=== PATIENT | female | born 1955 | race Caucasian/White ===

== ENCOUNTER 2016-06-04 08:29 | Observation (INO) | payer OTHER ==
--- NOTE | 2016-05-30 11:22 | P.GSHP ---
History of Present Illness H&P Date: 06/04/16 Chief Complaint: Incarcerated umbilical hernia This a 61-year-old female who initially presented to my office complaints of umbilical pain. Patient states that she has had pain off and on for several weeks in the area. She was felt a mass at her umbilicus. She was examined in the office found have an incarcerated umbilical hernia. - Gastrointestinal Gastrointestinal: Reports abdominal pain (Pain umbilicus) Past Medical History Past Medical History: Hypertension, Osteoarthritis (OA), Rheumatoid Arthritis ( RA), Thyroid Disorder Additional Past Medical History / Comment(s): back pain History of Any Multi-Drug Resistant Organisms: None Reported Past Surgical History: Hysterectomy Additional Past Surgical History / Comment(s): eye surgery, thyroidectomy, LEFT TOTAL HIP Past Anesthesia/Blood Transfusion Reactions: No Reported Reaction Past Psychological History: Anxiety Smoking Status: Current some day smoker Past Alcohol Use History: None Reported Additional Past Alcohol Use History / Comment(s): STARTED SMOKING AT AGE 20 QUIT ON AND OFF / SMOKED 1 PACK A WEEK Past Drug Use History: Opiates - Past Family History Mother Family Medical History: No Reported History Medications and Allergies Home Medications Medication Instructions Recorded Confirmed Type Cyclobenzaprine [Flexeril] 10 mg PO BID 12/15/14 02/05/16 History Gabapentin [Gabapentin] 800 mg PO TID 12/15/14 02/05/16 History Levothyroxine Sodium [Synthroid] 112 mcg PO HS 12/15/14 02/06/16 History amLODIPine BESYLATE [Amlodipine 5 mg PO DAILY 12/15/14 02/05/16 History Besylate] Aspirin 81 mg PO DAILY 02/05/16 02/05/16 History Buprenorphine HCl/Naloxone HCl 1 each SL TID 02/05/16 02/05/16 History [Suboxone 8 mg-2 mg Sl Film] cloNIDine HCL [Catapres] 0.1 mg PO HS 02/05/16 02/05/16 History clonazePAM [KlonoPIN] 0.25 mg PO TID 02/05/16 02/05/16 History Allergies Allergy/AdvReac Type Severity Reaction Status Date / Time morphine AdvReac LOW BLOOD Verified 02/05/16 10:14 PRESSURE Surgical - Exam Vital signs appear stable - General well developed, well nourished, no distress - Eyes PERRL - ENT normal pinna - Neck no masses - Respiratory normal expansion - Cardiovascular Rhythm: regular - Abdomen Abdomen: soft Hernia: umbilical, incarcerated (3 cm incarcerated umbilical hernia) Assessment and Plan Plan: Incarcerated umbilical hernia. We'll perform laparoscopic robotic-assisted repair with mesh.
[2016-05-31 11:14] VITALS: BMI 21.7
[~2016-06-04 08:29] MED LIST: DEXAMETHASONE SOD PHOSPHATE 10 MG/ML 1 ML VIAL IV ONE; HEPARIN SODIUM,PORCINE 5,000 UNIT/ML 1 ML VIAL SQ ONE; MIDAZOLAM 2 MG/2 ML VIAL IV PRN; SCOPOLAMINE 1.5MG/72HR PATCH TRANSDERM ONE; ceFAZolin 2 GM in SODIUM CHLORIDE 0.9% 100 ML IVPB ONE
[2016-06-04] MEDS: LACTATED RINGERS 1,000 ML IV SCH ×2 (09:22→23:35)
[2016-06-04] MEDS ORDERED: LIDOCAINE 1% 20 ML VIAL (10MG/ML) FOR IV START INTRADERMA ONE (09:23)
[2016-06-04] MEDS: ONDANSETRON 4 MG/2 ML VIAL IVP ONE ×2 (09:29→12:41)
[2016-06-04] MEDS ORDERED: PROPOFOL 10 MG/ML 20 ML VIAL IV ONE (10:04)
[2016-06-04] MEDS ORDERED: LIDOCAINE 1% INJ 10MG/ML (20 ML MDV) ONE (10:04)
[2016-06-04] MEDS ORDERED: KETOROLAC 30 MG/ML 1 ML VIAL ONE (10:04)
[2016-06-04] MEDS ORDERED: NEOSTIGMINE 1 MG/ML 10 ML VIAL ONE (10:04)
[2016-06-04] MEDS ORDERED: HYDROmorphone (PF) 1 MG/ML ONE (10:04)
[2016-06-04] MEDS ORDERED: GLYCOPYRROLATE 0.2 MG/ML 2 ML VIAL ONE (10:04)
[2016-06-04] MEDS ORDERED: ROCURONIUM BROMIDE 10 MG/ML 10 ML VIAL IV ONE (10:04)
[2016-06-04] MEDS ORDERED: LABETALOL 5 MG/ML VIAL MDV ONE (10:04)
[2016-06-04] MEDS ORDERED: hydrALAZINE HCL 20 MG/ML 1 ML VIAL ONE (10:04)
[2016-06-04] MEDS ORDERED: fentaNYL (PF) 50 MCG/ML 2 ML AMP ONE (10:04)
[2016-06-04] MEDS ORDERED: SUCCINYLCHOLINE CHLORIDE 100 MG/5 ML SYR IV ONE (10:04)
[2016-06-04] MEDS ORDERED: MIDAZOLAM 2 MG/2 ML VIAL ONE (10:04)
[2016-06-04] MEDS ORDERED: BUPIVACAIN-EPI 0.25%-1:200,000 30 ML VIAL SQ ONE (10:23)
--- NOTE | 2016-06-04 11:36 | P.OP ---
Date of Procedure: 06/04/16 Preoperative Diagnosis: Incarcerated umbilical hernia Postoperative Diagnosis: Incarcerated umbilical hernia Procedure(s) Performed: Laparoscopic robotic-assisted repair of incarcerated umbilical hernia Omentectomy Anesthesia: SAMIR Surgeon: Rc Wright Estimated Blood Loss (ml): 5 Pathology: other (Omentum) Condition: stable Disposition: PACU Description of Procedure: The patient's placed on the operating table in the supine position. She received a general anesthesia. Her abdomen was prepped and draped in usual sterile fashion. The peritoneal cavity is entered in the left upper quadrant using a 5 mm blade less trocar. After adequate insufflation the laparoscope placed back the pleural cavity and then a 8 mm robotic trocar was placed in the left lower quadrant and then a 12 mm trocar was placed in the left lateral position. The initial 5 mm trocar was exchanged for an 8 mm robotic trocar. The patient's placed in the left side up position. And then the patient was docked to the robot. Using the da Cesar robot the incarcerated ventral hernia was dissected. The incarcerated omentum was removed. The fascial defect was then closed using OV lock suture. After the fascial repair a [address] mesh was placed and secured with 2 OV lock suture. The patient was then undocked from the robot. And then the needles were withdrawn. The omentum was withdrawn through an Endo Catch. The fascia the 12 mm trocar site was closed with 0 Ethibond suture. The skin was closed with interrupted 3-0 Monocryl suture. Dermabond was applied. Patient top procedure well was sent to recovery in stable condition.
[2016-06-04] MEDS ORDERED: LACTATED RINGERS 1,000 ML IV ONE (11:37)
[2016-06-04] MEDS: HYDROmorphone 1 MG/ML 1 ML SYRINGE IVP ONE ×2 (12:26→12:32)
[2016-06-04] MEDS ORDERED: MIDAZOLAM 2 MG/2 ML VIAL IVP ONE (12:53)
[2016-06-04] MEDS ORDERED: HYDROcodone/APAP 7.5-325MG 1 EACH TAB PO ONE (14:05)
[2016-06-04] MEDS ORDERED: NALOXONE 0.4 MG/ML 1 ML VIAL IV PRN (15:31)
[2016-06-04] MEDS ORDERED: HYDROmorphone 1 MG/ML 1 ML SYRINGE IV PRN (15:31)
[2016-06-04] MEDS ORDERED: ACETAMINOPHEN TAB 325 MG TAB PO PRN (15:31)
[2016-06-04] MEDS ORDERED: HYDROcodone/APAP 5-325MG 1 EACH TAB PO PRN (15:31)
[2016-06-04] MEDS ORDERED: traMADol 50 MG TAB PO PRN (15:39)
[2016-06-04] MEDS ORDERED: ALPRAZolam 0.5 MG TAB PO PRN (15:39)
[2016-06-04] MEDS ORDERED: HYDROcodone/APAP 7.5-325MG 1 EACH TAB PO PRN (15:43)
[2016-06-04] MEDS ORDERED: SODIUM CHLORIDE 0.9% 1,000 ML IV SCH (15:45)
[2016-06-04] MEDS ORDERED: NALOXONE HCL SL SCH (16:00)
[2016-06-04] MEDS ORDERED: BUPRENORPHINE HCL SL SCH (16:00)
[2016-06-04] MEDS: KETOROLAC 30 MG/ML 1 ML VIAL IVP SCH ×2 (19:08→23:42)
[2016-06-04] MEDS: ONDANSETRON 4 MG/2 ML VIAL IVP PRN (19:13)
[2016-06-04] MEDS: HYDROmorphone 1 MG/ML 1 ML SYRINGE IVP PRN ×3 (20:01→23:42)
[2016-06-04] MEDS: HEPARIN SODIUM,PORCINE 5,000 UNIT/ML 1 ML VIAL SQ SCH (20:01)
[2016-06-04] MEDS: ALPRAZolam 0.5 MG TAB PO PRN (20:02)
[2016-06-04] MEDS ORDERED: LEVOTHYROXINE 112 MCG TAB PO SCH (21:00)
[2016-06-04] MEDS ORDERED: QUEtiapine 100 MG TAB PO SCH (21:00)
[2016-06-04] MEDS ORDERED: MAG HYDROX/AL HYDROX/SIMETH 30 ML CUP PO PRN (23:49)
[2016-06-05] MEDS: ONDANSETRON 4 MG/2 ML VIAL IVP PRN (01:48)
[2016-06-05] MEDS: HYDROmorphone 1 MG/ML 1 ML SYRINGE IVP PRN ×4 (01:48→09:17)
[2016-06-05] MEDS: KETOROLAC 30 MG/ML 1 ML VIAL IVP SCH ×2 (05:51→12:28)
[2016-06-05] MEDS: ALPRAZolam 0.5 MG TAB PO PRN (06:57)
[2016-06-05] MEDS: HEPARIN SODIUM,PORCINE 5,000 UNIT/ML 1 ML VIAL SQ SCH (08:40)
[2016-06-05] MEDS ORDERED: hydrALAZINE HCL 20 MG/ML 1 ML VIAL IVP PRN (08:57)
[2016-06-05] MEDS ORDERED: LACTOBACILLUS ACIDOPH & BULGAR 1 EACH PACKET PO SCH (09:00)
[2016-06-05] MEDS ORDERED: ESTROGENS, CONJUGATED 0.3 MG TAB PO SCH (09:00)
[2016-06-05] MEDS ORDERED: amLODIPine 10 MG TAB PO SCH (09:00)
[2016-06-05] MEDS ORDERED: PANTOPRAZOLE 40 MG/10 ML VIAL IV SCH (09:00)
[2016-06-05] MEDS ORDERED: ASPIRIN 81 MG CHEW PO SCH (09:00)
--- NOTE | 2016-06-05 11:52 | P.DS ---
Providers Date of admission: 06/04/16 19:34 Expected date of discharge: 06/05/16 Attending physician: Rc Wright Primary care physician: Francis [facility] Course: Patient is a 61-year-old female with complex medical history significant for chronic pain syndrome and opiate dependence. Patient presented to the hospital for elective laparoscopic robotic-assisted repair of incarcerated umbilical hernia. Patient tolerated procedure well. Patient was kept overnight for observation for intractable postoperative abdominal pain which improved during hospital stay. Upon examination, patient was tolerating a clear liquid diet. No nausea or vomiting. Passing flatus without bowel movement. Urinating without difficulty. Patient was up ambulating. Surgical incisions dry and intact. Patient was deemed stable for discharge with follow- up in the outpatient setting. Discharge diagnoses: Incarcerated umbilical hernia status post laparoscopic robotic-assisted repair of incarcerated umbilical hernia Omentectomy. Chronic pain syndrome with opiate dependence. The above impression and plan have been discussed and directed by Dr. Wright. Iftikhar HUTCHINS acting as scribe for Dr. Wright. Procedures: Laparoscopic robotic-assisted repair of incarcerated umbilical hernia; omentectomy Patient Condition at Discharge: Good Plan - Discharge Summary New Discharge Prescriptions: HYDROcodone/APAP 7.5-325MG [[place] 7.5-325] 1 each PO Q4H PRN #60 tab PRN Reason: Pain Discharge Medication List Aspirin 81 mg PO DAILY 02/05/16 [History] Estrogens, Conjugated [Premarin] 0.3 mg PO Q48H 05/31/16 [History] L.acidoph,Paracasei, B.lactis [Probiotic] 1 cap PO DAILY 05/31/16 [History] Methocarbamol [Robaxin] 1,000 mg PO Q8HR PRN 05/31/16 [History] Multivitamins, Thera [Multivitamin] 1 tab PO DAILY 05/31/16 [History] amLODIPine [Norvasc] 10 mg PO DAILY 05/31/16 [History] traMADol HCL [Ultram] 50 mg PO DIRECTED PRN 05/31/16 [History] ALPRAZolam [Xanax] 0.5 mg PO DIRECTED PRN 06/03/16 [History] Buprenorphine HCl/Naloxone HCl [Suboxone 8 mg-2 mg Sl Film] 1 film SL TID [History] QUEtiapine [SEROquel] 100 mg PO HS 06/03/16 [History] HYDROcodone/APAP 7.5-325MG [[place] 7.5-325] 1 each PO Q4H PRN #60 tab 06/04/16 [ Rx] Levothyroxine Sodium [Synthroid] 112 mcg PO HS 06/04/16 [History] Levothyroxine Sodium [Synthroid] 112 mcg PO HS tab 06/05/16 [Rx] Follow up Appointment(s)/Referral(s): Francis Cervantes MD [Primary Care Provider] - 1 Week Rc Wright MD [STAFF PHYSICIAN] - 1 Week Patient Instructions/Handouts: *Surgery [facility] - (Anesthesia) Discharge Instructions Outpatient Surgery, Laparoscopic Herniorrhaphy (DC) Care Plan Goals (MU): NO HEAVY LIFTING. ICE TO ABDOMEN TODAY ON 30 MINUTES,OFF 30 MINUTES. Discharge Disposition: HOME SELF-CARE
[2016-06-05] MEDS ORDERED: MULTIVITAMINS, THERA 1 EACH TAB PO SCH (12:00)
[2016-06-05 12:17] VITALS: BP 146/70; PULSE 79; RESP 16; TEMP 98.4
== END 2016-06-05 14:38 | disposition home or self-care (01) ==
LOC: OR 08:29 → 3OBS 11:41 → OR 19:36
PROVIDERS: ADMIT Surgery; ATTEND Surgery
DX: K42.0 Umbilical hernia with obstruction, without gangrene (principal); G89.4 Chronic pain syndrome; F11.20 Opioid dependence, uncomplicated; I10 Essential (primary) hypertension; M19.90 Unspecified osteoarthritis, unspecified site; E07.9 Disorder of thyroid, unspecified; Z79.82 Long term (current) use of aspirin; Z79.899 Other long term (current) drug therapy
CPT/HCPCS: 88305; 49653; G0378 ×2; C1781; J2250; J0360; J1644 ×2; J1100; J2710; J0690; J2405 ×2; J2001; J3010; J1885 ×2; J1170 ×2; J0330; J2704; 96372; 96374; 96375; 96376

== ENCOUNTER 2016-06-10 09:29 | Emergency (ER) | payer OTHER ==
[2016-06-10] MEDS ORDERED: SODIUM CHLORIDE 0.9% 1,000 ML IV STA (09:39)
[2016-06-10] MEDS ORDERED: ONDANSETRON 4 MG/2 ML VIAL IVP STA (09:48)
[2016-06-10] MEDS ORDERED: HYDROmorphone 1 MG/ML 1 ML SYRINGE IVP STA ×2 (09:48→12:22)
--- NOTE | 2016-06-10 09:50 | ED ---
General Adult HPI - General Chief complaint: Abdominal Pain Stated complaint: Abd pain Time Seen by Provider: 06/10/16 09:38 Source: patient, EMS, RN notes reviewed Mode of arrival: EMS - History of Present Illness Initial comments: Patient 61-year-old female who presents emergency room status post hernia repair times one week, who presents emergency room today with chief complaint of increased abdominal pain today. Does admit to increased pain throughout the abdomen greatest in the lower quadrant. States she's had flatulence but has not had a bowel movement since surgery. States pain is better since surgery has not gone away is not improving. Patient denies any nausea or vomiting. She denies any other complaints or associated symptoms. She does admit that it' s worse when she tries to sit up she feels increased pressure in the abdomen. Patient denies any recent fever, chills, shortness of breath, chest pain, back pain, nausea or vomiting, numbness or tingling, dysuria or hematuria, diarrhea, headaches or visual changes, or any other complaints. - Related Data Home Medications Medication Instructions Recorded Confirmed Aspirin 81 mg PO DAILY 02/05/16 06/10/16 Estrogens, Conjugated [Premarin] 0.3 mg PO Q48H 05/31/16 06/10/16 L.acidoph,Paracasei, B.lactis 1 cap PO DAILY 05/31/16 06/10/16 [Probiotic] Methocarbamol [Robaxin] 1,000 mg PO Q8HR PRN 05/31/16 06/10/16 Multivitamins, Thera [Multivitamin] 1 tab PO DAILY 05/31/16 06/10/16 amLODIPine [Norvasc] 10 mg PO DAILY 05/31/16 06/10/16 traMADol HCL [Ultram] 50 mg PO Q6H PRN 05/31/16 06/10/16 ALPRAZolam [Xanax] 0.25 - 0.5 mg PO Q8H PRN 06/03/16 06/10/16 Buprenorphine HCl/Naloxone HCl 1 film SL TID 06/03/16 06/10/16 [Suboxone 8 mg-2 mg Sl Film] QUEtiapine [SEROquel] 100 mg PO HS 06/03/16 06/10/16 HYDROcodone/APAP 7.5-325MG [[place] 1 tab PO Q4H PRN 06/10/16 06/10/16 7.5-325] Levothyroxine Sodium [Synthroid] 112 mcg PO DAILY 06/10/16 06/10/16 Allergies Allergy/AdvReac Type Severity Reaction Status Date / Time morphine AdvReac LOW BLOOD Verified 06/10/16 10:29 PRESSURE Review of Systems ROS Statement: Those systems with pertinent positive or pertinent negative responses have been documented in the HPI. ROS Other: All systems not noted in ROS Statement are negative. Past Medical History Past Medical History: Fibromyalgia, GERD/Reflux, Hypertension, Osteoarthritis ( OA), Rheumatoid Arthritis (RA), Thyroid Disorder Additional Past Medical History / Comment(s): HEPATITIS C, LOW BACK PAIN, LEFT HIP PAIN. , HX OF GRAVES EYE DISEASE. ,UMBILICAL HERNIA. History of Any Multi-Drug Resistant Organisms: Other MDRO Date of last positivie culture/infection: 06/2011 MDRO Source:: HANDS Past Surgical History: Hysterectomy Additional Past Surgical History / Comment(s): ORBITAL DECOMPRESSION EYE SURGERY , THYROIDECTOMY, LEFT TOTAL HIP, CYSTOCELE & RECTOCELE. Past Anesthesia/Blood Transfusion Reactions: No Reported Reaction Past Psychological History: Anxiety Smoking Status: Current some day smoker Past Alcohol Use History: None Reported Additional Past Alcohol Use History / Comment(s): STARTED SMOKING AT AGE 20 QUIT FOR 4 YEARS. SMOKES < 1PPD. SMOKING FOR APPROX 38 YEARS. Past Drug Use History: None Reported - Past Family History Mother Family Medical History: No Reported History General Exam - General Exam Comments Initial Comments: General: The patient is awake and alert, in no distress, and does not appear acutely ill. Eye: Pupils are equal, round and reactive to light, extra-ocular movements are intact. No nystagmus. There is normal conjunctiva bilaterally. No signs of icterus. Ears, nose, mouth and throat: There are moist mucous membranes and no oral lesions. Neck: The neck is supple, there is no tenderness or JVD. Cardiovascular: There is a regular rate and rhythm. No murmur, rub or gallop is appreciated. Respiratory: Lungs are clear to auscultation, respirations are non-labored, breath sounds are equal. No wheezes, stridor, rales, or rhonchi. Gastrointestinal: Normal appearance the abdomen. Incision sites are healing well with no signs of redness locally. Abdomen soft on palpation. Diffusely tender throughout the abdomen. No rebound tenderness. No guarding. Musculoskeletal: Normal ROM, no tenderness. Strength 5/5. Sensation intact. Pulses equal bilaterally 2+. Neurological: A&O x 3. CN II-XII intact, There are no obvious motor or sensory deficits. Coordination appears grossly intact. Speech is normal. Skin: Skin is warm and dry and no rashes or lesions are noted. Psychiatric: Cooperative, appropriate mood & affect, normal judgment. Course Vital Signs 06/10/16 09:30 Temperature 97.8 F Pulse Rate 82 Respiratory 18 Rate Blood Pressure 146/68 O2 Sat by Pulse 98 Oximetry Medical Decision Making - Medical Decision Making Patient's CAT scan reviewed and does show 1. Postoperative changes of the umbilical hernia repair. As noted there is mild stranding in the region of the omentum is a small amount of fluid presently postoperative in nature. Small amount of air seen within the abdomen as well as within the subcutaneous tissue. No drainable collection is seen at this time. 2. There is wall thickening involving the distal stomach and pylorus. Possible inflammatory process. 3. There is dilation of the intrahepatic biliary tree, common bile duct and pancreatic duct without obstructing calculus identified or distinct mass. As read by radiologist Dr. Martin. Case discussed in detail with attending physician Dr. Etienne. Results were discussed with the patient at bedside. She states she does have an appointment with her surgeon tomorrow. Patient pain controlled here the emergency room. Abdomen is soft. Vital stable. She will be discharged home advised to follow-up with surgeon tomorrow. Advised return if any symptoms increase or worsen. - Lab Data Result diagrams: 06/10/16 10:00 06/10/16 10:00 Lab Results 06/10/16 06/10/16 06/10/16 Range/Units 10:00 10:00 10:00 WBC 11.7 H (3.8-10.6) k/uL RBC 4.71 (3.80-5.40) m/uL Hgb 14.5 (11.4-16.0) gm/dL Hct 46.2 H (34.0-46.0) % MCV 98.1 (80.0-100.0) fL MCH 30.8 (25.0-35.0) pg MCHC 31.4 (31.0-37.0) g/dL RDW 13.6 (11.5-15.5) % Plt Count 339 (150-450) k/uL Neutrophils % 69 % Lymphocytes % 20 % Monocytes % 4 % Eosinophils % 5 % Basophils % 1 % Neutrophils # 8.1 H (1.3-7.7) k/uL Lymphocytes # 2.4 (1.0-4.8) k/uL Monocytes # 0.5 (0-1.0) k/uL Eosinophils # 0.5 (0-0.7) k/uL Basophils # 0.1 (0-0.2) k/uL Sodium 140 (137-145) mmol/L Potassium 4.2 (3.5-5.1) mmol/L Chloride 102 (98-107) mmol/L Carbon Dioxide 30 (22-30) mmol/L Anion Gap 8 mmol/L BUN 14 (7-17) mg/dL Creatinine 0.57 (0.52-1.04) mg/dL Est GFR (MDRD) Af Amer >60 (>60 ml/min/1.73 sqM) Est GFR (MDRD) Non-Af >60 (>60 ml/min/1.73 sqM) Glucose 98 (74-99) mg/dL Plasma Lactic Acid Desmond 1.3 (0.7-2.0) mmol/L Calcium 9.8 (8.4-10.2) mg/dL Total Bilirubin 0.5 (0.2-1.3) mg/dL AST 33 (14-36) U/L ALT 42 (9-52) U/L Alkaline Phosphatase 75 (38-126) U/L Total Protein 7.1 (6.3-8.2) g/dL Albumin 3.9 (3.5-5.0) g/dL Amylase 54 (30-110) U/L Lipase 45 (23-300) U/L Disposition Clinical Impression: Postoperative abdominal pain Disposition: HOME SELF-CARE Condition: Good Instructions: Abdominal Pain (ED) Additional Instructions: Please use medication as discussed. Please follow-up with surgeon tomorrow with scheduled appointment. Please return to emergency room if the symptoms increase or worsen or for any other concerns. Referrals: Francis Cervantes MD [Primary Care Provider] - 1-2 days Rc Wright MD [STAFF PHYSICIAN] - 1-2 days Time of Disposition: 12:25
[2016-06-10 10:41] LABS: Basophils # (A) 0.1 k/uL (0-0.2); Basophils % (A) 1 %; CHCM 32.8; Eosinophils # (A) 0.5 k/uL (0-0.7); Eosinophils % (A) 5 %; HCT 46.2 % (34.0-46.0); HDW 2.29; HGB 14.5 gm/dL (11.4-16.0); Luc # (Auto) 0.11; Luc % (Auto) 1; Lymphocytes # (A) 2.4 k/uL (1.0-4.8); Lymphocytes % (A) 20 %; MCH 30.8 pg (25.0-35.0); MCHC 31.4 g/dL (31.0-37.0); MCV 98.1 fL (80.0-100.0); Mean Platelet Volume 7.8; Monocytes # (A) 0.5 k/uL (0-1.0); Monocytes % (A) 4 %; Neutrophils # (A) 8.1 k/uL (1.3-7.7); Neutrophils % (A) 69 %; RBC 4.71 m/uL (3.80-5.40); RDW 13.6 % (11.5-15.5); WBC 11.7 k/uL (3.8-10.6); WBC (Perox) 12.54
[2016-06-10 10:46] LABS: ALT 42 U/L (9-52); AST 33 U/L (14-36); Alkaline Phosphatase 75 U/L (38-126); Amylase 54 U/L (30-110); Anion Gap 8 mmol/L; Blood Urea Nitrogen 14 mg/dL (7-17); Calcium 9.8 mg/dL (8.4-10.2); Carbon Dioxide 30 mmol/L (22-30); Chloride 102 mmol/L (98-107); Glucose 98 mg/dL (74-99); Non-African American GFR(MDRD) >60 (>60 ml/min/1.73 sqM); Potassium 4.2 mmol/L (3.5-5.1); Sodium 140 mmol/L (137-145); Total Bilirubin 0.5 mg/dL (0.2-1.3); Total Protein 7.1 g/dL (6.3-8.2)
[2016-06-10] MEDS ORDERED: RX INFO: IV CONTRAST WAS GIVEN 1 EACH MISC MISCELLANE PRN (10:47)
--- NOTE | 2016-06-10 10:47 | XR ---
EXAMINATION TYPE: XR KUB DATE OF EXAM: 06/10/2016 10:36 AM COMPARISON: NONE HISTORY: Pain TECHNIQUE: Single supine KUB image of the abdomen is obtained FINDINGS: Small bowel demonstrates no evidence for dilatation or air fluid levels. Gas and fecal material is seen in non-distended colon. No convincing evidence for pneumoperitoneum. No unusual calcifications. The lung bases are clear. The osseous structures are intact. IMPRESSION: 1. Overall nonobstructive bowel gas pattern.
--- NOTE | 2016-06-10 11:55 | CT ---
EXAMINATION TYPE: CT abdomen pelvis w con DATE OF EXAM: 06/10/2016 11:40 AM COMPARISON: NONE HISTORY: Pain since Hernia repair done 06/04/16 CT DLP: 373.7 mGycm CONTRAST: CT scan of the abdomen and pelvis is performed without Oral Contrast and with IV Contrast, patient in jected with 100 mL of Omnipaque 300. FINDINGS: LUNG BASES-: No visible nodule. No infiltrate. Mild linear atelectasis at the lung bases. LIVER/GB: No calcified gallstones. No space occupying hepatic lesion. Common bile duct is dilated at nearly 9 mm. There is mild intrahepatic biliary ductal dilatation as well. PANCREAS: No inflammation. No distinct mass. Intrahepatic duct is mildly dilated at 4.8 mm. Conside r ERCP evaluation. SPLEEN: No splenic enlargement. No lesion seen. ADRENALS: No nodule. No thickening. KIDNEYS/BLADDER: No hydronephrosis. No nephrolithiasis. No disctinct renal mass. Urinary bladder g rossly unremarkable. BOWEL:Normal appendix. Normal bowel caliber. No inflammation. There is wall thickening involving th e gastric pylorus which may be inflammatory in nature correlate clinically. GENITAL ORGANS: No gross abnormality. LYMPH NODES: No greater than 1cm abdominal or pelvic lymph nodes are appreciated. AORTA: No significant abnormality. OSSEOUS STRUCTURES: No significant abnormality is seen. OTHER: Small amount of subcutaneous air is noted as well as a small amount of air within the abdomen from recent umbilical hernia surgery. There is mild stranding of the omentum as well as a small amoun t of fluid likely postoperative in nature. IMPRESSION: 1. Postoperative changes of umbilical hernia repair. As noted there is mild stranding in the region o f the omentum is a small amount of fluid presumably postoperative in nature. Small amount of air is s een within the abdomen as well as within the subcutaneous tissues. No drainable collection is seen at this time. 2. There is wall thickening involving the distal stomach and pylorus. Correlate for possible inflamma tory process. 3. There is dilatation of the intrahepatic biliary tree, common bile duct and pancreatic duct without obstructing calculus identified on this study or distinct mass. Consider further evaluation with ERC P.
[2016-06-10 12:44] VITALS: BP 122/66; PULSE 74; RESP 16; TEMP 98
[2016-06-10 13:04] LABS: Appearance,Urine Cloudy (Clear); Bacteria,Urine Occasional /hpf; Bilirubin,Urine Negative (Negative); Glucose,Urine (UA) Negative (Negative); Ketones,Urine Trace (Negative); Leukocyte Esterase,Urine Small (Negative); Mucus,Urine Rare /hpf; Nitrite,Urine Negative (Negative); PH, Urine 6.5 (5.0-8.0); Particle Count 6607; Protein,Urine Negative (Negative); RBC,Urine <1 /hpf (0-5); Squamous Epithelial Cell,Urine 11 /hpf (0-4); UA Billing (MACRO vs. MICRO) MICRO; Urobilinogen,Urine <2.0 mg/dL (<2.0); WBC,Urine 5 /hpf (0-5)
== END 2016-06-10 13:30 | disposition home or self-care (01) ==
LOC: EC 09:29
DX: G89.18 Other acute postprocedural pain (principal); R10.9 Unspecified abdominal pain; Z79.82 Long term (current) use of aspirin; Z79.890 Hormone replacement therapy; I10 Essential (primary) hypertension; E07.9 Disorder of thyroid, unspecified; Z88.5 Allergy status to narcotic agent; F41.9 Anxiety disorder, unspecified; F17.200 Nicotine dependence, unspecified, uncomplicated; M79.7 Fibromyalgia
CPT/HCPCS: 36415; 80053; 82150; 83605; 83690; 85025; 81001; 74000; 74177; 96374; 96375; 96376; 96361 ×3; 99285; J2405; J1170; Q9967

== ENCOUNTER 2018-08-15 02:49 | Emergency (ER) | payer OTHER ==
[2018-08-15 03:03] VITALS: TEMP 97.5
--- NOTE | 2018-08-15 03:06 | ED ---
Altered Mental Status HPI - General Chief Complaint: Altered Mental Status Stated Complaint: Altered Mental Status Source: EMS Mode of arrival: EMS Limitations: altered mental status - History of Present Illness Initial Comments: Nedra is a 23-year-old female presents the emergency department today evaluation of altered mental status difficulty breathing headache and proptosis of her eyes. Patient has a history of Graves' disease reports her left eye is usually slightly proptotic. Patient on arrival is confused and agitated complaining of a headache. Per EMS they were patched to call for difficulty breathing. Upon arrival they were told by the patient's significant other that she has had a very emotionally stressful day he is concerned that she's having a panic attack and emotional breakdown. Apparently earlier in the day the patient's son who has a significant medical and psychiatric history of depression called her and told her he plan to kill himself. She then contacted police in [place] where he lives and he was taken to a hospital for psychiatric evaluation. This is obviously very emotionally distressing for the patient. This evening when she was noti fied that he was in the hospital she began having difficulty breathing becoming very agitated. He reports that he can get her to calm down or breathes any slower at which time he called EMS. EMS reports that they arrived on scene and the patient was laying on the ground with a cold rag on her head she was very pale and diaphoretic she was complaining of trouble breathing. She was noted to be very tachypneic. Upon their arrival the patient seemed to strain and have her seen proptosis of her left eye and then lost vision in her left eye. Patient reported that this is happened before and she was able to coax the block tester on how to gently apply pressure to her I which then went back into s ocket in her vision was restored to normal. - Related Data Home Medications Medication Instructions Recorded Confirmed Aspirin 81 mg PO DAILY 02/05/16 06/10/16 Estrogens, Conjugated [Premarin] 0.3 mg PO Q48H 05/31/16 06/10/16 L.acidoph,Paracasei, B.lactis 1 cap PO DAILY 05/31/16 06/10/16 [Probiotic] Methocarbamol [Robaxin] 1,000 mg PO Q8HR PRN 05/31/16 06/10/16 Multivitamins, Thera [Multivitamin 1 tab PO DAILY 05/31/16 06/10/16 (formulary)] amLODIPine [Norvasc] 10 mg PO DAILY 05/31/16 06/10/16 traMADol HCL [Ultram] 50 mg PO Q6H PRN 05/31/16 06/10/16 ALPRAZolam [Xanax] 0.25 - 0.5 mg PO Q8H PRN 06/03/16 06/10/16 Buprenorphine HCl/Naloxone HCl 1 film SL TID 06/03/16 06/10/16 [Suboxone 8 mg-2 mg Sl Film] QUEtiapine [SEROquel] 100 mg PO HS 06/03/16 06/10/16 HYDROcodone/APAP 7.5-325MG [[place] 1 tab PO Q4H PRN 06/10/16 06/10/16 7.5-325] Levothyroxine Sodium [Synthroid] 112 mcg PO DAILY 06/10/16 06/10/16 Allergies Allergy/AdvReac Type Severity Reaction Status Date / Time morphine AdvReac LOW BLOOD Verified 08/15/18 03:03 PRESSURE Review of Systems ROS Statement: Those systems with pertinent positive or pertinent negative responses have been documented in the HPI. ROS Other: All systems not noted in ROS Statement are negative. Past Medical History Past Medical History: Fibromyalgia, GERD/Reflux, Hypertension, Osteoarthritis (OA), Rheumatoid Arthritis (RA), Thyroid Disorder Additional Past Medical History / Comment(s): HEPATITIS C, LOW BACK PAIN, LEFT HIP PAIN. , HX OF GRAVES EYE DISEASE. ,UMBILICAL HERNIA. History of Any Multi-Drug Resistant Organisms: Other MDRO Date of last positivie culture/infection: 06/2011 MDRO Source:: HANDS Past Surgical History: Hysterectomy Additional Past Surgical History / Comment(s): ORBITAL DECOMPRESSION EYE SURGERY, THYROIDECTOMY, LEFT TOTAL HIP, CYSTOCELE & RECTOCELE. Past Anesthesia/Blood Transfusion Reactions: No Reported Reaction Past Psychological History: Anxiety Smoking Status: Current some day smoker Past Alcohol Use History: None Reported Past Drug Use History: None Reported, Opiates - Past Family History Mother Family Medical History: No Reported History General Exam - General Exam Comments Initial Comments: GENERAL: Chronically ill-appearing very thin female noted to have left eye proptosis and appear uncomfortable on exam HENT: Normocephalic, Atraumatic. Neck is soft and supple. No significant lymphadenopathy is noted. Oropharynx is clear. Moist mucous membranes. Neck has full range of motion without eliciting any pain. EYES: Left eye is proptotic Extraocular movements are intact Pupils equal round reactive to light PULMONARY: Unlabored respirations. Good breath sounds bilaterally. No audible rales rhonchi or wheezing was noted. CARDIOVASCULAR: There is a regular rate and rhythm without any murmurs gallops or rubs. ABDOMEN: Soft and nontender with normal bowel sounds. SKIN: Skin is clear with no lesions or rashes and otherwise unremarkable. NEUROLOGIC: is alert and oriented she is able to state her full name date of identify that she is in a hospital she is aware of the events that occurred earlier in the day, she seems somewhat confused about her significant other at bedside she is very confused about events leading up to hospitalization Patient is alert and oriented x3. Cranial nerves II through XII are grossly intact. Motor and sensory are also intact. Normal speech, volume and content. Symmetrical smile. MUSCULOSKELETAL: No lower extremity swelling or edema. No calf tenderness. LYMPHATICS: No significant lymphadenopathy is noted PSYCHIATRIC: Situational anxiety Limitations: altered mental status Course Vital Signs 08/15/18 08/15/18 08/15/18 02:51 03:57 04:00 Temperature 97.5 F L Pulse Rate 103 H 93 100 Respiratory 18 16 18 Rate Blood Pressure 147/77 162/89 172/97 O2 Sat by Pulse 100 100 99 Oximetry 08/15/18 04:29 Temperature 97.5 F L Pulse Rate 80 Respiratory 18 Rate Blood Pressure 164/80 O2 Sat by Pulse 99 Oximetry Medical Decision Making - Medical Decision Making The patient was seen and evaluated history is obtained from the patient, EMS and significant other at bedside Patient with very emotionally stressful day having episode of what the significant other believes was a panic attack with hyperventilation upon arrival to the emergency department she complains only of confusion and headache Labs and imaging was ordered I was called to the CT scanner by the packaging tech who has concern that the findings are positive for acute bleeding Upon my evaluation of the images I do have a high concern for subarachnoid bleed At this time the patient needs to be transferred to a facility that has neurosurgical services available, patient care was discussed with Dr. Muñoz at [facility] who accepts the transfer Patient care was discussed with Dr. Steiner radiology who has concern for ruptured aneurysm in recommends CTA for further evaluation and sign CTA was ordered EMS arrived transport - Lab Data Result diagrams: 08/15/18 03:21 08/15/18 03:21 Lab Results 08/15/18 08/15/18 Range/Units 03:21 03:21 WBC 13.4 H (3.8-10.6) k/uL RBC 4.85 (3.80-5.40) m/uL Hgb 15.1 (11.4-16.0) gm/dL Hct 45.5 (34.0-46.0) % MCV 94.0 (80.0-100.0) fL MCH 31.1 (25.0-35.0) pg MCHC 33.1 (31.0-37.0) g/dL RDW 13.7 (11.5-15.5) % Plt Count 290 (150-450) k/uL Neutrophils % 58 % Lymphocytes % 31 % Monocytes % 6 % Eosinophils % 2 % Basophils % 1 % Neutrophils # 7.8 H (1.3-7.7) k/uL Lymphocytes # 4.1 (1.0-4.8) k/uL Monocytes # 0.8 (0-1.0) k/uL Eosinophils # 0.3 (0-0.7) k/uL Basophils # 0.1 (0-0.2) k/uL Sodium 141 (137-145) mmol/L Potassium 3.4 L (3.5-5.1) mmol/L Chloride 104 (98-107) mmol/L Carbon Dioxide 27 (22-30) mmol/L Anion Gap 10 mmol/L BUN 18 H (7-17) mg/dL Creatinine 0.65 (0.52-1.04) mg/dL Est GFR (CKD-EPI)AfAm >90 (>60 ml/min/1.73 sqM) Est GFR (CKD-EPI)NonAf >90 (>60 ml/min/1.73 sqM) Glucose 103 H (74-99) mg/dL Calcium 10.3 H (8.4-10.2) mg/dL Magnesium 2.0 (1.6-2.3) mg/dL Total Bilirubin 0.6 (0.2-1.3) mg/dL AST 39 H (14-36) U/L ALT 32 (9-52) U/L Alkaline Phosphatase 101 (38-126) U/L Total Protein 7.4 (6.3-8.2) g/dL Albumin 4.1 (3.5-5.0) g/dL - EKG Data -: EKG Interpreted by Me EKG Comments: EKG was obtained 3:12 AM, rate is 98 rhythm is sinus there is a normal axis there are normal intervals, WV 134, QRS 88, QTC is 469. No acute ST elevations or may be mild ST depressions in V4 V5. No evidence of acute infarction. Critical Care Time Critical Care Time: Yes Total Critical Care Time: 30 Disposition Clinical Impression: Subarachnoid bleed Disposition: OTHER INSTITUTION NOT DEFINED Condition: Serious Referrals: Francis Cervantes MD [STAFF PHYSICIAN] - 1-2 days - Out of Hospital Transfer - Req. Specs Out of Hospital Transfer - Requested Specifics: Neurological ICU (Maldonado Mendez)
--- NOTE | 2018-08-15 04:09 | CT ---
EXAM: CT Head Without Intravenous Contrast CLINICAL HISTORY: ITS.REASON CT Reason: altered TECHNIQUE: Axial computed tomography images of the head/brain without intravenous contrast. CTDI is 45.2 mGy and DLP is 1008 mGy-cm. This CT exam was performed using one or more of the following dose reduction techniques: automated exposure control, adjustment of the mA and/or kV according to patient size, and/or use of iterative reconstruction technique. COMPARISON: None FINDINGS: Brain: Triangular morphology of the cerebellar tonsils which extend 10 mm below foramen magnum with associated crowding compatible with Chiari I malformation. Extensive subarachnoid hemorrhage is seen involving the sulci of the frontal lobes, suprasellar cistern, and basilar cisterns as well as small amount of intraventricular blood in the left lateral ventricle and the fourth ventricle. Ventricles: Unremarkable. No ventriculomegaly. Bones/joints: Chronic fracture deformity of the right orbital floor. Soft tissues: Unremarkable. Sinuses: Unremarkable as visualized. No acute sinusitis. Mastoid air cells: Unremarkable as visualized. No mastoid effusion. IMPRESSION: 1. Extensive subarachnoid hemorrhage and small amount of intraventricular hemorrhage. Recommend evaluation with CT head angiogram to evaluate for ruptured aneurysm. 2. Triangular morphology of the cerebellar tonsils which extend 10 mm below foramen magnum with associated crowding compatible with Chiari I malformation. <MYCVCSECTION> Critical Value Communications 08/15/18 04:14 Call Doctor Regarding Intracranial Hemorrhage, called Dr. Argueta on 08/15 04:13 (-04:00)
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
[2018-08-15] MEDS ORDERED: ONDANSETRON 4 MG/2 ML VIAL IVP STA (04:21)
[2018-08-15 04:27] LABS: Albumin 4.1 g/dL (3.5-5.0); Anion Gap 10 mmol/L; Blood Urea Nitrogen 18 mg/dL (7-17); Calcium 10.3 mg/dL (8.4-10.2); Carbon Dioxide 27 mmol/L (22-30); Chloride 104 mmol/L (98-107); Glucose 103 mg/dL (74-99); Sodium 141 mmol/L (137-145); Total Bilirubin 0.6 mg/dL (0.2-1.3); Total Protein 7.4 g/dL (6.3-8.2)
[2018-08-15 04:28] LABS: ALT 32 U/L (9-52); AST 39 U/L (14-36); Alkaline Phosphatase 101 U/L (38-126); Potassium 3.4 mmol/L (3.5-5.1)
[2018-08-15 04:29] VITALS: BP 164/80; PULSE 80; RESP 18
[2018-08-15 04:29] LABS: Basophils # (A) 0.1 k/uL (0-0.2); Basophils % (A) 1 %; Eosinophils # (A) 0.3 k/uL (0-0.7); Eosinophils % (A) 2 %; HCT 45.5 % (34.0-46.0); HGB 15.1 gm/dL (11.4-16.0); Lymphocytes # (A) 4.1 k/uL (1.0-4.8); Lymphocytes % (A) 31 %; MCH 31.1 pg (25.0-35.0); MCHC 33.1 g/dL (31.0-37.0); Mean Platelet Volume 8.1; Monocytes # (A) 0.8 k/uL (0-1.0); Monocytes % (A) 6 %; Neutrophils # (A) 7.8 k/uL (1.3-7.7); Neutrophils % (A) 58 %; Platelet Count 290 k/uL (150-450); RBC 4.85 m/uL (3.80-5.40); RDW 13.7 % (11.5-15.5); WBC 13.4 k/uL (3.8-10.6)
--- NOTE | 2018-08-15 04:38 | CT ---
EXAM: CT Angiography Head With Intravenous Contrast CLINICAL HISTORY: ITS.REASON CT Reason: Pain TECHNIQUE: Axial computed tomographic angiography images of the head with intravenous contrast using CT angiography protocol. CTDI is 43.2 mGy and DLP is 1016 mGy-cm. This CT exam was performed using one or more of the following dose reduction techniques: automated exposure control, adjustment of the mA and/or kV according to patient size, and/or use of iterative reconstruction technique. 3D and MIP reconstructed images were created and reviewed. COMPARISON: CT head 08/15/2018 FINDINGS: Right internal carotid artery: No acute findings. Intracranial segment is patent with no significant stenosis. No aneurysm. Right anterior cerebral artery: There is an anterior communicating artery aneurysm measuring 3 mm in width with a dome to neck measuring approximately 4.5 mm and a neck measuring approximately 2 mm. There is a small bleb at the dome of the aneurysm. No occlusion or significant stenosis. Right middle cerebral artery: Unremarkable. No occlusion or significant stenosis. No aneurysm. Right posterior cerebral artery: Unremarkable. No occlusion or significant stenosis. No aneurysm. Right vertebral artery: Unremarkable as visualized. Left internal carotid artery: No acute findings. Intracranial segment is patent with no significant stenosis. No aneurysm. Left anterior cerebral artery: See above. Left middle cerebral artery: Unremarkable. No occlusion or significant stenosis. No aneurysm. Left posterior cerebral artery: Unremarkable. No occlusion or significant stenosis. No aneurysm. Left vertebral artery: Unremarkable as visualized. Basilar artery: Unremarkable. No occlusion or significant stenosis. No aneurysm. IMPRESSION: 1. 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 2. No other aneurysm is seen. 3. No large vessel occlusion or hemodynamically significant stenosis. <MYCVCSECTION> Critical Value Communications 08/15/18 04:36 Call Doctor Regarding Aneurysm Rupture, called Dr. Argueta on 08/15 04:36 (-04:00)
[2018-08-15 04:47] LABS: Appearance,Urine Clear (Clear); Bilirubin,Urine Negative (Negative); Blood,Urine Negative (Negative); Color,Urine Light Yellow; Glucose,Urine (UA) Negative (Negative); Ketones,Urine Negative (Negative); Leukocyte Esterase,Urine Negative (Negative); Nitrite,Urine Negative (Negative); Protein,Urine Negative (Negative); Specific Gravity,Urine 1.008 (1.001-1.035); Urobilinogen,Urine <2.0 mg/dL (<2.0)
[2018-08-15 04:50] LABS: Amphetamine Screen,Urine Detected (NotDetected); Barbiturate Screen,Urine Not Detected (NotDetected); Benzodiazepines Screen,Urine Detected (NotDetected); Cocaine Screen,Urine Not Detected (NotDetected); Methadone Screen, Urine Not Detected (NotDetected); Opiate Screen,Urine Not Detected (NotDetected); Oxycodone Screen, Urine Not Detected (NotDetected); Phencyclidine Screen,Urine Not Detected (NotDetected); Tricyclic Antidepressant,Urine Not Detected (NotDetected); Urn Cannabinoid Scrn Not Detected (NotDetected)
[2018-08-15 06:01] LABS: T4, Free (Free Thyroxine) 1.69 ng/dL (0.78-2.19)
== END 2018-08-15 04:32 | disposition short-term general hospital (02) ==
LOC: EC 02:49
DX: I60.9 Nontraumatic subarachnoid hemorrhage, unspecified (principal); I10 Essential (primary) hypertension; E07.9 Disorder of thyroid, unspecified; F41.9 Anxiety disorder, unspecified; F17.200 Nicotine dependence, unspecified, uncomplicated; Z79.82 Long term (current) use of aspirin; Z79.899 Other long term (current) drug therapy; Z88.5 Allergy status to narcotic agent; Z90.89 Acquired absence of other organs
CPT/HCPCS: 36415; 85379; 84439; 80053; 84443; 83735; 85025; 81003; 80306; 70496; 70450; 70480; 99291; 96374; J2405; Q9967

== ENCOUNTER 2019-04-26 13:18 | Emergency (ER) | payer OTHER ==
[2019-04-26 13:26] VITALS: RESP 18; TEMP 98.6
[2019-04-26] MEDS ORDERED: ACETAMINOPHEN TAB 500 MG TAB PO STA (13:43)
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
[2019-04-26 15:25] VITALS: BP 134/80; PULSE 73
== END 2019-04-26 15:22 | disposition home or self-care (01) ==
LOC: EC 13:18
DX: S20.219A Contusion of unspecified front wall of thorax, initial encounter (principal); I10 Essential (primary) hypertension; F41.9 Anxiety disorder, unspecified; E07.9 Disorder of thyroid, unspecified; F17.200 Nicotine dependence, unspecified, uncomplicated; Z79.82 Long term (current) use of aspirin; Z79.899 Other long term (current) drug therapy; Z79.890 Hormone replacement therapy; Z88.5 Allergy status to narcotic agent; V43.52XA Car driver injured in collision with other type car in traffic accident, initial encounter; Y92.410 Unspecified street and highway as the place of occurrence of the external cause
CPT/HCPCS: 70450; 71046; 71120; 93005; 99285